=== PATIENT | male | born 1985 | race Caucasian/White ===

== ENCOUNTER 2017-02-11 14:34 | Emergency (ER) | payer OTHER ==
[~2017-02-11 14:34] MED LIST: KEFLEX PO; NO MEDICATIONS; PROTONIX PO
== END 2017-02-11 14:51 | disposition left against medical advice (07) ==
LOC: CED 14:34
DX: Z53.21 Procedure and treatment not carried out due to patient leaving prior to being seen by health care provider (principal)

== ENCOUNTER 2017-02-11 16:21 | Emergency (ER) | payer BC ==
--- NOTE | ~2017-02-11 | CT4 ---
[facility] A Service of [facility] & [facility] RADIOLOGY TEXT RESULTS PATIENT: MARIAM MCLAIN JR LOCATION: SED : 85 UNIT #: [id number] AGE: [address]: Malina Lennon MD SEX: M ORDER DR: [id number] [address] [address] [id number] MR#: [id number] Acc #: [id number] NAME: MARIAM MCLAIN JR : 1985 SEX: M STUDY DATE/TIME: 02/11/2017 17:15 UNIT: SED ROOM: STUDY DESCRIPTION: CT Abd and Pelv Wo Cont Attending Physician: Malina Lennon M.D. Ordering Physician: Malina Lennon M.D. Primary Care Physician: Jaswant Lam Aprn MEDICAL IMAGING REPORT This report is preliminary unless electronic signature is present. EXAM CT scan of the abdomen and pelvis without contrast 02/11/2017. HISTORY Left flank pain and pressure beginning at 02:00 p.m. today. Evaluate for obstructing renal calculus. TECHNIQUE Spiral CT was performed through the abdomen and pelvis without oral or intravenous contrast administration using renal stone protocol. This CT exam was performed with one or more of the following radiation dose reduction techniques: Automatic exposure control, adjustment of mA and/or kV according to patient size, and iterative reconstruction. FINDINGS Abdomen: There is minimal distension of the left renal collecting system and left ureter with some inflammatory stranding in the fat surrounding the left ureter but no obstructing renal or ureteral stone is seen. Findings may reflect a recently passed stone but no calculus is seen within the bladder. Clinical correlation is recommended. The right kidney is normal. There is fatty infiltration of the liver. The spleen, pancreas, gallbladder and biliary tree and adrenal glands are normal. Pelvis: Findings there is colonic diverticulosis without evidence of diverticulitis. The gut is otherwise unremarkable. No adenopathy is seen and there is no free fluid in the abdomen or pelvis. Images of the lung bases show a small hiatal hernia. IMPRESSION 1. Very slight distension of the left renal collecting system and left ureter and there is minimal inflammatory stranding in the fat surrounding the left ureter. However no obstructing renal or ureteral calculus is seen. Findings may reflect a recently passed [facility] A Service of [facility] RADIOLOGY TEXT RESULTS PATIENT: MARIAM MCLAIN JR LOCATION: SED : 85 UNIT #: [id number] AGE: [address]: Malina Lennon MD SEX: M ORDER DR: stone but no calculus is seen within the bladder. Clinical correlation is recommended. 2. Fatty infiltration of the liver. 3. Small hiatal hernia. 4. Diverticulosis. No evidence of diverticulitis. 1. Dictated by... Elias De M.D. THIS IS AN ELECTRONICALLY VERIFIED REPORT Elias De M.D. at 02/12/2017 2:10 PM KRT/radha TD: 02/12/2017 07:16 JOB #: [id number] MEDICAL IMAGING REPORT Page 1 of 1
[2017-02-11 16:42] LABS: URINE SOURCE CLEAN CATCH
[2017-02-11 16:45] LABS: MICRO INDICATED? YES; URINE APPEARANCE CLEAR; URINE BILIRUBIN NEG (NEG); URINE BLOOD TRACE-INTACT (NEG); URINE COLOR YELLOW; URINE GLUCOSE NEG (NORM); URINE KETONE NEG (NEG); URINE LEUKOCYTE ESTERASE NEG (NEG); URINE NITRATE NEG (NEG); URINE PROTEIN TRACE (NEG); URINE SPECIFIC GRAVITY >=1.030 (1.003-1.035); URINE UROBILINOGEN 0.2 MG/DL (NORM)
[2017-02-11 16:55] LABS: CULTURE INDICATED? NO; URINE BACTERIA NEG (NEG); URINE MUCUS PRESENT; URINE SQUAMOUS EPITHELIAL CELL MODERATE /[HPF]
[2017-02-11 17:02] LABS: BASOPHIL% 0.2 % (0-2.5); EOSINOPHIL# 0.2 X10e3 (0-0.7); EOSINOPHIL% 1.1 % (0.0-7.0); HEMATOCRIT 48.4 % (38.0-50.0); HEMOGLOBIN 16.7 gm/dL (13.0-16.0); LYMPHOCYTE# 2.6 X10e3 (1.0-3.5); MEAN CELL VOLUME 91.5 FL (83-96); MEAN CORPUSCULAR HEMOGLOBIN 31.7 PG (28-34); MEAN CORPUSCULAR HGB CONC 34.6 g/dL (30-36); MONOCYTE# 1.2 X10e3 (0-1.0); MONOCYTE% 6.9 % (3.0-12.0); NEUTROPHIL# 13.5 X10e3 (1.5-7.1); NEUTROPHIL% 76.8 % (40-75); PLATELET COUNT 233 X10e3 (140-420); RED BLOOD COUNT 5.29 X10e (3.90-5.60); RED CELL DISTRIBUTION WIDTH 13.1 % (11.0-15.5); WHITE BLOOD COUNT 17.6 X10e3 (4.0-10.5)
[2017-02-11 17:04] LABS: DIFF IND NO
[2017-02-11 17:14] LABS: ALBUMIN SERUM 4.7 g/dL (3.5-5.0); BILIRUBIN, DIRECT 0.1 mg/dL (0.0-0.2); BILIRUBIN,INDIRECT 0.6 mg/dL (0.0-0.9); BILIRUBIN,TOTAL 0.7 mg/dL (0.2-2.0); BUN/CREATININE RATIO 11.81; CALCIUM SERUM 9.1 mg/dL (8.4-10.2); CREATININE SERUM 1.1 mg/dL (0.6-1.4); POTASSIUM 3.7 mmol/L (3.5-5.1); PROTEIN TOTAL SERUM 8.3 g/dL (6.0-8.3)
== END 2017-02-11 18:58 | disposition home or self-care (01) ==
LOC: SED 16:21
PROVIDERS: Emergency Medicine
DX: R10.9 Unspecified abdominal pain (principal); F17.210 Nicotine dependence, cigarettes, uncomplicated; Z87.442 Personal history of urinary calculi
CPT/HCPCS: 36415; 74176; 80048; 80076; 81003; 83690; 85025; 96361; 96374; 96375; 99284; J1170; J1885; J2405